=== PATIENT | male | born 1945 | race Caucasian/White ===

== ENCOUNTER 2016-05-27 08:33 | Day surgery (SDC) | payer MEDICARE, OTHER ==
--- NOTE | ~2016-05-27 | CN ---
Consultation Report [place] [id number] [facility] [place]. [address] NAME: IRINEO DRISCOLL : [birth year] [place] [facility] [place] [id number] AGE: 71 ADM/REG DATE : 05/27/16 MR#: [id number] REPORT SERV DATE: 05/27/16 DICTATED BY: RADU DILLON DATE: 05/27/16 REPORT STATUS : Draft TRANSCRIBED BY: MODL DATE: 05/27/16 CONSULTATION DATE OF CONSULTATION: Dear Dr. Eduardo and Bridger Sanches: Thank you for requesting my opinion regarding evaluation and management of Mr. Driscoll's mediastinal lymphadenopathy and left lower lobe cavitary consolidation. Mr. Driscoll is a pleasant 71-year-old gentleman with a significant past medical history of renal carcinoma, status post partial left nephrectomy in 07/2011, who presents with a history of worsening shortness of breath and multiple respiratory infections over the past three to four months. CT scan performed in 06/2015 did not demonstrate any lymphadenopathy, however, repeat CT scan on 05/06/2016 demonstrated areas of consolidation in both lower lobes indicating probable pneumonia, minimal atelectasis or infiltrate in the lingula; and consolidation, which could obscure other possible abnormalities; borderline mediastinal lymphadenopathy, which is nonspecific; calcific atherosclerosis including involvement of coronary arteries and pacemaker. I have been asked to evaluate him for bronchoscopic biopsy to better delineate the potential etiology of his lymphadenopathy or recurrence of malignancy. Mr. Driscoll states that his shortness of breath is slightly improved while on doxycycline. He does have chest congestion with white to clear sputum on an intermittent basis and he denies any aspiration events or trouble swallowing, chest pain, palpitations, nausea, vomiting, diarrhea, or constipation. He has lost a few pounds over the past several weeks to months. REVIEW OF SYSTEMS: A detailed 14-point review of systems was completed. Pertinent positives and negatives are listed above. PAST MEDICAL HISTORY: 1. Hypertension. 2. Renal cell carcinoma. 3. History of hemoptysis. 4. COPD. 5. Atrial fibrillation. 6. Foot pain. 7. BPH. 8. Chronic fatigue. 9. Vitamin D deficiency. 10.Erectile dysfunction. 11.Hip pain. 12.Low back pain. 13.Spinal stenosis. 14.Male hypogonadism. Consultation Report [place] [id number] [facility] [address]. [address] NAME: IRINEO DRISCOLL : [birth year] [place] [facility] [place] [id number] AGE: 71 ADM/REG DATE : 05/27/16 MR#: [id number] REPORT SERV DATE: 05/27/16 DICTATED BY: RADU DILLON DATE: 05/27/16 REPORT STATUS : Draft TRANSCRIBED BY: MODL DATE: 05/27/16 15.Peripheral neuropathy. 16.Renal artery stenosis. 17.Lumbar radiculopathy. 18.RLS. 19.GERD. 20.Mixed hyperlipidemia. 21.Anxiety. 22.Type 2 diabetes. 23.Depression. 24.TIA. 25.Pulmonary embolism and infarction in the past. 26.Lymphadenopathy. 27.Popliteal vein DVT. 28.Insomnia. PAST SURGICAL HISTORY: 1. Cholecystectomy. 2. Right knee arthroscopy. 3. Hernia repair in 2010-right inguinal. 4. Diskectomy level L3-L4. 5. Partial left nephrectomy in 07/2011. 6. Right hydrocelectomy in 2008. 7. Pacemaker. SOCIAL HISTORY: The patient is . He quit smoking in 1981, but smoked most of his adult life. He denies any significant current alcohol or illicit drug abuse. ALLERGIES: XANAX, PENICILLIN, AND AVELOX. HOME MEDICATIONS: Reviewed and located in the paper chart. FAMILY HISTORY: PR and heart failure. PHYSICAL EXAMINATION: VITAL SIGNS: Reviewed and located in the paper chart. GENERAL: No acute distress. Able to communicate in full paragraphs at a time. Chronically ill appearing. HEENT: Normocephalic, atraumatic. Pupils are equal, round, and reactive to light and accommodation. Posterior oropharynx is clear. NECK: No JVD. No LAD. Trachea midline. CARDIOVASCULAR: Regular rate and rhythm. S1 and S2 present. No obvious murmurs, rubs, or clicks. RESPIRATORY: Clear to auscultation bilaterally with the exception of some coarse breath sounds. ABDOMEN: Nontender, nondistended, soft. Positive bowel sounds. Consultation Report [place] [address] [place]. [address] NAME: IRINEO DRISCOLL : 41 [place] [facility] [place] [id number] AGE: 71 ADM/REG DATE : 05/27/16 MR#: [id number] REPORT SERV DATE: 05/27/16 DICTATED BY: RADU DILLON DATE: 05/27/16 REPORT STATUS : Draft TRANSCRIBED BY: NEFTALI DATE: 05/27/16 EXTREMITIES: No clubbing, cyanosis, or edema. SKIN: No new rashes, lesions, or ulcers. PSYCHIATRIC: Alert and oriented x3. Appropriate mood and affect. Appropriate insight and judgment. NEUROLOGIC: 5/5 strength in upper and lower extremities. Cranial nerves 2 through 12 intact. Gait not tested. DTRs not performed. DIAGNOSTIC STUDIES: CT scan of the chest on 05/06/2016, areas of consolidation in both lower lobes indicating probable pneumonia, minimal atelectasis or infiltrate in the lingula, consolidation could obscure visualization of the possible abnormalities, borderline mediastinal lymphadenopathy prominence, calcific atherosclerosis, pacemaker. ASSESSMENT AND PLAN: Mr. Irineo Driscoll is an extremely pleasant 71-year-old gentleman with significant past medical history of renal cell carcinoma, who presents with a history of three to four respiratory infections over the past several months. He had mediastinal lymphadenopathy detected on a recent CT scan as well as areas of consolidation in both lower lobes. He has required multiple outpatient courses of antibiotics since he just recently finished doxycycline. The patient was sent to me for evaluation to rule out such neoplasm especially with mediastinal lymph nodes. I believe it will be pertinent to biopsy both the mediastinal lymph nodes as well as a left lower lobe consolidation that appears to have a cavitary component, although there are blebs in this area previously. If this is an inflammatory process, I expect that he has chronic aspiration or an atypical infection. We discussed in detail potential options including repeat imaging, CT-guided needle biopsy, thoracic surgical biopsy, or EBUS, and navigation bronchoscopy. After careful discussion of the risks, benefits, and alternatives to each of these procedures, we agreed to proceed forward with EBUS and navigation bronchoscopy. The patient is aware that the procedure is associated with potential life-threatening risks including lung collapse, respiratory failure, and even . RECOMMENDATIONS: A summary of my recommendations are as follows: 1. Proceed with EBUS and navigation bronchoscopy. 2. Follow up with Dr. Nash Duque. Thank you for allowing me to participate in Mr. Driscoll's care. MATEUSZ/NEFTALI Radu Dillon M.D. / [id number] Consultation Report [place] [address] [address] [address] NAME: IRINEO DRISCOLL : [birth year] [place] [facility] [place] [id number] AGE: 71 ADM/REG DATE : 05/27/16 MR#: [id number] REPORT SERV DATE: 05/27/16 DICTATED BY: RADU DILLON DATE: 05/27/16 REPORT STATUS : Draft TRANSCRIBED BY: MODL DATE: 05/27/16 CC: Crystal Figueroa D.O.
--- NOTE | ~2016-05-27 | EGD ---
EGD REPORT [facility] [address] [place] [address] NAME: IRINEO DRISCOLL : 41 STATUS : REG [facility]#: [id number] AGE: 71 ADM/REG DATE : 05/27/16 MR#: [id number] REPORT SERV DATE: 05/27/16 DICTATED BY: TOY DILLON DATE: 05/27/16 REPORT STATUS : Draft TRANSCRIBED BY: [facility] DATE: 05/27/16 Pulmonology Patient Name: Irineo Driscoll Procedure Date: 05/27/2016 10:03 AM Date of : 1945 Attending MD: JEANNA DILLON MD Procedure Date No Time: 05/27/2016 Procedure: EBUS/BRITTANI Bronchoscopy Indications: LLL cavitating abnormality - inflammatory (lung abscess vs PNA) or occult malignancy Providers: JEANNA DILLON MD Referring MD: NAEEM Larson Medicines: Lidocaine 2% 20 mL Complications: No immediate complications Procedure: Pre-Anesthesia Assessment: - A History and Physical has been performed. Patient meds and allergies have been reviewed. The risks and benefits of the procedure and the sedation options and risks were discussed with the patient. All questions were answered and informed consent was obtained. Patient identification and proposed procedure were verified prior to the procedure by the physician and the nurse in the pre-procedure area in the procedure room. Mental Status Examination: normal. Airway Examination: normal oropharyngeal airway. Respiratory Examination: clear to auscultation and poor air movement. CV Examination: normal and RRR, no murmurs, no S3 or S4. ASA Grade Assessment: IV - A patient with severe systemic disease that is a constant threat to life. After reviewing the risks and benefits, the patient was deemed in satisfactory condition to undergo the procedure. The anesthesia plan was to use general anesthesia. Immediately prior to administration of medications, the patient was re-assessed for adequacy to receive sedatives. The heart rate, respiratory rate, oxygen saturations, blood pressure, adequacy of pulmonary ventilation, and response to care were monitored throughout the procedure. The physical status of the patient was re-assessed after the procedure. After obtaining informed consent, the Bronchoscope was introduced through the mouth, via the endotracheal tube (the patient was intubated for the procedure) and advanced to the tracheobronchial tree. the BF [id number] was introduced through the mouth, via the endotracheal tube (the patient was intubated for the procedure) and advanced to the tracheobronchial tree. EGD REPORT [address] [address] NAME: IRINEO DRISCOLL : 41 STATUS : REG [facility] PAT#: [id number] AGE: 71 ADM/REG DATE : 05/27/16 MR#: [id number] REPORT SERV DATE: 05/27/16 DICTATED BY: TOY DILLON DATE: 05/27/16 REPORT STATUS : Draft TRANSCRIBED BY: [facility] DATE: 05/27/16 The procedure was accomplished without difficulty. The patient tolerated the procedure well. Findings: The endotracheal tube is in good position. The visualized portion of the trachea is of normal caliber. The jenni is sharp. The tracheobronchial tree was examined to at least the first subsegmental level. Bronchial mucosa and anatomy are normal; there are no endobronchial lesions, and no secretions. EBUS TBNA of lymph node level 11L x 4 passes for cytology EBUS TBNA of lymph node level 7 x 4 passes for cytology Using SuperDimension Edge catheter 180 and computer assisted virtual planning (no GPS), peripheral probe EBUS 17s, and fluoroscopy, I performed the following biopsies: LLL cavitary lesion transbronchial needle aspirates x 7 passes for cytology LLL cavitary lesion transbronchial brush biopsy x 1 pass for cytology LLL cavitary lesion transbronchial forcep biopsies x 3 passes for histopathology Bronchoalveolar lavage was performed in the left lower lobe of the lung and sent for cell count, cytology, bacterial culture, viral smears \\T\\ culture, and fungal and AFB analysis. 180 mL of fluid were instilled. 30 mL were returned. The return was blood-tinged and cellular. Impression: Rapid On-Site Evaluation (CATHERINE): Preliminary cytology is "acute inflammation, necrosis" (final results are pending). Clinically, this is more consistent with a lung abscess. Recommendation: - Await test results. - Chest X-ray. - Follow up in clinic in 2 weeks. - Follow up with referring physician. Attending Participation: I personally performed the entire procedure. JEANNA DILLON MD 05/27/2016 11:36 AM This report has been signed electronically. Number of Addenda: 0 Note Initiated On: 05/27/2016 10:03 AM [address] [address]
[~2016-05-27 08:33] MED LIST: ACCUNE1 INH; ACCUNEB INH; ALBUTEROL0.083 % INH; AMBIEN CR12.5 MG PO; ASAB PO; ASTELIN NAS; ASTEPRO0.15 % NAS; ATRONASAL3 NAS; AXIRON; B121000P IM; BELSOMRA20 MG PO; BENTYL10 PO; BREO ELLIPTA 21 EACH INH; BYSTOLIC10 MG PO; CAT1 PO; CRESTOR5 MG PO; CYMBALTA60 PO; D 5000 PO; DIOVAN HC2 PO; DYMISTA; DYMISTA NASAL S23 GM NAS; ELIQUIS 5 MG TAB5 MG PO; FERROUS SULF325 M1 PO; FISH OIL1200 MG PO; HYCET 7.5 MG-3473 ML PO; HYDROCHLOROT25 MG PO; INCRUSE ELLI62.5 MCG INH; LIDODERM T; LISINOPRIL40 MG PO; LOP100 PO; MAX25 PO; METANX PO; METHOC500B PO; METPAKSF PO; MUCINEX D1 TA1 OR; MUCINEX1200 MG PO; MUCINEX600 MG PO; NAC 600 PO; NASACORTAQ NAS; NEXIUM40 PO; NUCALA SQ; PR25 PO; PREV30 PO; PROVENT20 INH; PROVHFA INH; REG PO; ROZEREM8 MG PO; SKELAXIN8 PO; SPIRIVA INH; SPIRO25 PO; SYMBICORT 160/41 INH INH; TRANXENE 7.5 M7.5 MG OR; TRANXENE 7.5 M7.5 MG PO; TUSSINEX; TUSSINEX PO; VITAMIN D1000 UNI1 PO; XYZAL5 MG PO; ZOCOR20 PO; ZYRTEC ALLGY10 MG PO; [UNRECOGNIZED DRUG - OTHER] IJ; [UNRECOGNIZED DRUG - OTHER] IJ; [UNRECOGNIZED DRUG - OTHER] IJ; [UNRECOGNIZED DRUG - OTHER] PO
[2016-05-27 08:59] LABS: BASOPHILS 0.4 %; BASOPHILS ABSOLUTE 0.03 10/3/uL (0.0-0.16); EOSINOPHILS 0.4 %; EOSINOPHILS ABSOLUTE 0.03 10/3/uL (0.0-0.53); HEMATOCRIT 41.4 % (40.0-51.0); HEMOGLOBIN 14.2 g/dL (13.6-17.8); IMMATURE GRANULOCYTES 0.1 %; IMMATURE GRANULOCYTES ABSOLUTE 0.01 10/3/uL (0.0-0.11); LYMPHOCYTES ABSOLUTE 1.07 10/3/uL (0.67-4.30); MANUAL DIFF NO %; MEAN CORPUS HGB CONC 34.3 g/dL (32.0-36.0); MEAN CORPUSCULAR HEMOGLOB 28.5 pg (26.0-34.0); MEAN CORPUSCULAR VOLUME 83.1 fL (80-100); MEAN PLATELET VOLUME 8.6 fL (9.2-13.0); MONOCYTES 5.7 %; MONOCYTES ABSOLUTE 0.38 10/3/uL (0.21-1.20); NEUTROPHILS 77.4 %; NEUTROPHILS ABSOLUTE 5.18 10/3/uL (2.02-8.40); PLATELET COUNT 81 10/3/uL (150-400); RBC DISTRIBUTION WIDTH 13.6 % (12.0-16.0); RED CELL COUNT 4.98 10/6/uL (4.7-6.1); WHITE BLOOD CELLS 6.7 10/3/uL (4.5-10.5)
[2016-05-27 09:06] LABS: INTERNATIONAL NORMAL RATI 1.2 UNITS (-); PARTIAL THROMBO TIME 40.8 SEC (22.5-37.2); PROTIME (NOT ORD) 15.1 SEC (12.0-14.5)
[2016-05-27 09:53] LABS: CALCIUM, SERUM 9.1 MG/DL (8.5-10.4); CHLORIDE, SERUM 103 MMOL/L (96-112); CO2 (CARBON DIOXIDE) 28 MMOL/L (24-34); CREATININE 1.34 MG/DL (0.70-1.30); GFR AFRICAN AMERICAN 60 ML/MIN (>=60); GFR NON AFRICAN AMERICAN 52 ML/MIN (>=60); GLUCOSE, SERUM 98 MG/DL (60-99); POTASSIUM, SERUM 4.7 MMOL/L (3.5-5.3); SODIUM, SERUM 140 MMOL/L (135-148)
[2016-05-27 09:54] LABS: BUN (BLOOD UREA NITROGEN) 25 MG/DL (6-23)
[2016-05-27 17:30] LABS: BD FL LYMPH (NOT ORD) 4 %; BD FL SOURCE (NOT ORD) BAL--LUL; BF BASO (NOT OF) 0 %; BF LARGE MONONUCLEAR 15 %; BF TOTAL CELL CT (NOT ORD 815 /MM3; BODY FLUID EOS (NOT ORD) 1 %; BODY FLUID RBC (NOT ORD) 22000 /MM3; BODY FLUID SEG (NOT ORD) 80 %
== END 2016-05-27 23:59 | disposition home or self-care (01) ==
LOC: DMU 08:33
PROVIDERS: Internal Medicine
PROC: 0B9J8ZX Drainage of Left Lower Lung Lobe, Via Natural or Artificial Opening Endoscopic, Diagnostic (ICD-10-PCS; principal; 2016-05-27 10:00)
PROC: 07B74ZX Excision of Thorax Lymphatic, Percutaneous Endoscopic Approach, Diagnostic (ICD-10-PCS; 2016-05-27 10:00)
PROC: 0BBJ8ZX Excision of Left Lower Lung Lobe, Via Natural or Artificial Opening Endoscopic, Diagnostic (ICD-10-PCS; 2016-05-27 10:00)
PROC: 0BBJ8ZX Excision of Left Lower Lung Lobe, Via Natural or Artificial Opening Endoscopic, Diagnostic (ICD-10-PCS; 2016-05-27 10:00)
PROC: 0BB28ZX Excision of Carina, Via Natural or Artificial Opening Endoscopic, Diagnostic (ICD-10-PCS; 2016-05-27 10:00)
PROC: 8E0WXBF Computer Assisted Procedure of Trunk Region, With Fluoroscopy (ICD-10-PCS; 2016-05-27 10:00)
DX: J18.9 Pneumonia, unspecified organism (principal); J98.4 Other disorders of lung; J44.1 Chronic obstructive pulmonary disease with (acute) exacerbation; N40.0 Benign prostatic hyperplasia without lower urinary tract symptoms; E55.9 Vitamin D deficiency, unspecified; G25.81 Restless legs syndrome; E78.2 Mixed hyperlipidemia; F41.9 Anxiety disorder, unspecified; E11.40 Type 2 diabetes mellitus with diabetic neuropathy, unspecified; F32.9 Major depressive disorder, single episode, unspecified; I10 Essential (primary) hypertension; J45.909 Unspecified asthma, uncomplicated; K58.9 Irritable bowel syndrome, unspecified; Z90.49 Acquired absence of other specified parts of digestive tract; Z95.0 Presence of cardiac pacemaker; Z98.890 Other specified postprocedural states; Z90.5 Acquired absence of kidney; Z82.49 Family history of ischemic heart disease and other diseases of the circulatory system; Z86.73 Personal history of transient ischemic attack (TIA), and cerebral infarction without residual deficits; Z86.711 Personal history of pulmonary embolism; N52.9 Male erectile dysfunction, unspecified; Z88.0 Allergy status to penicillin; Z88.8 Allergy status to other drugs, medicaments and biological substances; Z79.899 Other long term (current) drug therapy; Z98.41 Cataract extraction status, right eye; Z98.42 Cataract extraction status, left eye
CPT/HCPCS: 71010; 80048; 85025; 85610; 85730; 87015; 87070; 87077; 87101; 87102; 87116; 87186; 87205; 88112; 88172; 88173; 88305; 88333; 89051; 93005; A9270-GY; C1725; C1769; J2370; J2710